=== PATIENT | male | born 1980 | race Caucasian/White ===

== ENCOUNTER 2020-12-30 08:13 | Emergency (ER) | payer OTHER, SELFPAY ==
[2020-12-30 08:27] VITALS: BP 124/77; PULSE 62; RESP 18; TEMP 36.2; O2SAT 99
--- NOTE | 2020-12-30 08:55 | ED.SKABFB ---
HPI - Skin/Abscess/Foreign Bdy General Chief complaint: Skin/Abscess/Foreign Body Stated complaint: Cyst behind ear thats infected Time Seen by Provider: 12/30/20 08:30 Source: patient Mode of arrival: ambulatory Limitations: no limitations History of Present Illness HPI narrative: Patient presents with pain behind his left ear. Pain is moderately severe, and ongoing, dull in nature. Pain has been ongoing for the past 6 days, not improved with ibuprofen. It appears he has a sebaceous cyst behind his left ear, that has recently became spontaneously infected, as these are likely to do. Nothing has decreased the pain or made this feel better. Tetanus up to date: yes Associated symptoms: denies other symptoms Related Data Allergies Allergy/AdvReac Type Severity Reaction Status Date / Time No Known Allergies Allergy Verified 12/30/20 08:27 Review of Systems Constitutional: Constitutional: Reports no additional constitutional complaints Eyes: Eyes: Reports no additional eye complaints ENT: Reports system reviewed and no additional complaints, except as documented Cardiovascular: Cardiovascular: Reports no additional cardiovascular complaints Respiratory: Respiratory: Reports no additional respiratory complaints Gastrointestinal: Gastrointestinal: Reports no additional gastrointestinal complaints Genitourinary: Genitourinary: Reports no additional male genitourinary complaints Musculoskeletal: Musculoskeletal: Reports no additional musculoskeletal complaints Integumentary/Breasts: Skin/Breast: Reports system reviewed and no additional complaints, except as docu Neurologic: Reports system reviewed and no additional complaints, except as documented Psychiatric: Psychiatric: Reports no additional psychiatric complaints Endocrine: Endocrine: Reports no additional endocrine complaints Hematologic/Lymphatic: Hematologic/Lymphatic: Reports no additional hematologic/lymphatic complaints Allergic/Immunologic: Allergic/Immunologic: Reports no additional allergic/immunologic complaints [facility] Past Medical History Medical History (Updated 12/31/20 @ 23:07 by Cesar Kelley MD) No significant past medical history Surgical History Surgical History (Updated 12/31/20 @ 23:07 by Cesar Kelley MD) No significant past surgical history Family History Family History (Updated 12/31/20 @ 23:08 by Cesar Kelley MD) Mother No significant family history Social History Social History (Updated 12/31/20 @ 23:08 by Cesar Kelley MD) Smoking status: Never smoker Exam Const: General: no acute distress Orientation/consciousness: patient oriented x3 HENMT: Ears: TM's normal bilaterally Face and sinus: normal facial exam Mouth: Yes Normal oral and palatal mucosa present Throat: posterior oropharynx normal Other: He has what appears to be an infected sebaceous cyst behind his left ear. This is partially draining now, and is about the size of a quarter. Eyes: Conjunctivae: conjunctivae normal Neck: Neck: no lymphadenopathy Chest: Chest palpation & inspection: normal inspection of the chest Resp: Effort & Inspection: normal respiratory effort Auscultation: clear to auscultation bilaterally Cardio: Rate: regular rate Rhythm: regular rhythm GI: Auscultation: normal bowel sounds (soft nontender) Skin: General skin exam: normal color Neuro: General: patient oriented x3 and moves all extremities Extrem: General: normal to inspection Psych: Appearance: grossly normal Mental Status: mental status grossly normal Thought content: Yes Normal thought content present Course Course Emergency Course: Informed consent was obtained. Lidocaine 1% with epinephrine was used, 4cc to numb the area. Following this the area was opened with an 11 blade, about 3/4 inch. The sebaceous cyst was removed, including the lining. The wound was closed with one #4 nylon suture. Vital Signs Vital signs: Vital Signs Tem
== END 2020-12-30 09:05 | disposition home or self-care (01) ==
PROVIDERS: Emergency Provider Emergency Medicine; PCP Family Medicine
DX: L72.3 Sebaceous cyst (principal)
CPT/HCPCS: 10060; 99283

== ENCOUNTER 2021-01-12 22:05 | Emergency (ER) | payer OTHER, SELFPAY ==
[2021-01-12 22:40] VITALS: BP 125/85; PULSE 74; RESP 18; TEMP 36.8; O2SAT 97
--- NOTE | 2021-01-12 22:58 | ED.GENADULT ---
HPI - General Adult General Chief complaint: Unspecified Stated complaint: needs stitches removed Source: patient History of Present Illness HPI narrative: Patient here today after he had a cyst removed approximately 2 weeks ago and had 1 suture placed, here today for suture removal of the area looks well approximated with no erythema no drainage no fever chills no warmth or tenderness. Onset (ago): week(s) Location: neck Related Data Home Medications Medication Instructions Recorded Confirmed No Home Medications 01/12/21 01/12/21 Allergies Allergy/AdvReac Type Severity Reaction Status Date / Time No Known Allergies Allergy Verified 12/30/20 08:27 Review of Systems Review of Systems: All systems reviewed & are unremarkable except as noted in HPI and below PMFSH Past Medical History Medical History No significant past medical history Surgical History Surgical History No significant past surgical history Family History Family History Mother No significant family history Social History Social History Smoking status: Never smoker Exam Const: General: cooperative, healthy appearing, comfortable and no acute distress HENMT: Head: normal to inspection Face and sinus: normal facial exam Mouth: Yes Normal oral and palatal mucosa present Eyes: General: appearance normal, both eyes and all related structures Neck: Neck: normal visual inspection Cardio: Jugular venous distension: no JVD Palpation: normal PMI GI: Inspection: normal to inspection Back/Spine/Pelvis: Back: no CVA tenderness Skin: General skin exam: normal color and no rashes or lesions noted Other: Suture behind the left ear upper neck area Neuro: General: oriented to person, oriented to place and oriented to time Course Course Emergency Course: suture removed from posterior right ear and upper neck area 1 suture the area was well approximated and no drainage no fever chills. Vital Signs Vital signs: Vital Signs Temperature 36.8 C 01/12/21 22:40 Pulse Rate 74 01/12/21 22:40 Respiratory Rate 18 01/12/21 22:40 Blood Pressure 125/85 01/12/21 22:40 Pulse Oximetry 97 01/12/21 22:40 Temperature 36.8 C 01/12/21 22:40 Pulse Rate 74 01/12/21 22:40 Respiratory Rate 18 01/12/21 22:40 Blood Pressure 125/85 01/12/21 22:40 Pulse Oximetry 97 01/12/21 22:40 Medical Decision Making Vital Signs Vital Signs: Vital Signs Temperature 36.8 C 01/12/21 22:40 Pulse Rate 74 01/12/21 22:40 Respiratory Rate 18 01/12/21 22:40 Blood Pressure 125/85 01/12/21 22:40 Pulse Oximetry 97 01/12/21 22:40 Temperature 36.8 C 01/12/21 22:40 Pulse Rate 74 01/12/21 22:40 Respiratory Rate 18 01/12/21 22:40 Blood Pressure 125/85 01/12/21 22:40 Pulse Oximetry 97 01/12/21 22:40 Critical Care Time Critical Care Time Critical Care Time: No Discharge Plan Discharge Clinical Impression: Visit for suture removal Patient Disposition: Home, Self-Care Condition: Stable Instructions: Antibiotic Form, Stitches Removal (ED) Additional Instructions: follow-up with primary care physician if symptoms persist or worsen. Prescriptions: No Action No Home Medications RF: 0 Follow-up/Referrals: Brown Peter MD [Primary Care Provider] - Time of Disposition: 23:07
[2021-01-12] MEDS: NEOMYCIN/POLYMYXIN/BACITRACIN OINTMENT PACKET 1 PACKET TOPICAL (23:05)
[2021-01-12 23:14] VITALS: BP 130/89; PULSE 75; RESP 18; O2SAT 98
== END 2021-01-12 23:15 | disposition home or self-care (01) ==
PROVIDERS: Emergency Provider Emergency Medicine; PCP Family Medicine
DX: Z48.02 Encounter for removal of sutures (principal)
CPT/HCPCS: 99281; 99282

== ENCOUNTER 2021-06-24 15:17 | Emergency (ER) | payer OTHER, SELFPAY ==
[2021-06-24 15:29] VITALS: BP 137/102; PULSE 114; RESP 18; TEMP 36.9; O2SAT 97
--- NOTE | 2021-06-24 15:33 | ED.SKABFB ---
HPI - Skin/Abscess/Foreign Bdy General Chief complaint: Skin/Abscess/Foreign Body Stated complaint: bump om back on neck possible infection Time Seen by Provider: 06/24/21 15:33 Source: patient Mode of arrival: ambulatory Limitations: no limitations History of Present Illness HPI narrative: 40-year-old man comes in today complaining of painful swelling on his left upper back. Patient states that he has had a painless bump there for approximately 6 months. In the last few days it has become red and warm. He denies fever, nausea, vomiting or prior skin infections. complaint: abscess/boil Onset (ago): day(s) (2) Location: back Quality: sharp Pain Consistency: constant Relieving factors: none Exacerbating factors: palpation Context: other (Extant sebaceous cyst) Treatments prior to arrival: none Related Data Allergies Allergy/AdvReac Type Severity Reaction Status Date / Time No Known Allergies Allergy Verified 06/24/21 15:28 Review of Systems Review of Systems: All systems reviewed & are unremarkable except as noted in HPI and below Constitutional: Constitutional: Denies chills and Denies fever(s) Gastrointestinal: Gastrointestinal: Denies nausea and Denies vomiting Genitourinary: Genitourinary: Denies dysuria and Denies urinary frequency Integumentary/Breasts: Skin/Breast: Denies pruritus, Reports erythema and Denies rash Hematologic/Lymphatic: Hematologic/Lymphatic: Denies easy bleeding and Denies easy bruising Allergic/Immunologic: Allergic/Immunologic: Denies lip swelling and Denies throat swelling PMFSH Past Medical History Medical History No significant past medical history Surgical History Surgical History No significant past surgical history Family History Family History Mother No significant family history Social History Social History (Updated 06/24/21 @ 16:14 by Silvio Orlando MD) Smoking status: Never smoker Substance use: never Living arrangements: with family Exam Const: General: no acute distress and alert Orientation/consciousness: patient oriented x3 Neck: Neck: normal visual inspection and no lymphadenopathy Resp: Effort & Inspection: normal respiratory effort and not labored Auscultation: clear to auscultation bilaterally, no rales, no rhonchi and no wheezes Cardio: Rate: regular rate Rhythm: regular rhythm Heart sounds: no murmurs Skin: General skin exam: normal color, no jaundice and no pallor Rashes: no rashes Other: 1.5 cm tender bump on the left upper back that is tender to palpation. No fluctuance. No drainage. Neuro: General: patient oriented x3, moves all extremities, no focal motor deficits and CN's II-XI intact bilaterally Speech: normal speech Gait exam (Neuro): Normal gait present Extrem: General: normal to inspection and no clubbing, cyanosis or edema Psych: Appearance: grossly normal and well kempt Mental Status: mental status grossly normal Affect: normal affect Attitude: cooperative Thought content: Yes Normal thought content present Course Vital Signs Vital signs: Vital Signs Temperature 36.9 C 06/24/21 15:29 Pulse Rate 114 H 06/24/21 15:29 Respiratory Rate 18 06/24/21 15:29 Blood Pressure 137/102 H 06/24/21 15:29 Pulse Oximetry 97 06/24/21 15:29 Temperature 36.9 C 06/24/21 15:29 Pulse Rate 114 H 06/24/21 15:29 Respiratory Rate 18 06/24/21 15:29 Blood Pressure 137/102 H 06/24/21 15:29 Pulse Oximetry 97 06/24/21 15:29 Procedures Abscess I/D back: Date of Incision: 06/24/21 Time of Incision: 16:00 Side (if applicable): left Local Anesthetic: lidocaine 1% and with epi Amount of anesthesia used (mL): 3 Technique: incised with #11 blade and other (Blunt dissection of the of the cyst was attempt
--- NOTE | 2021-06-24 16:09 | PC.NURSE ---
Assisted Dr. Orlando with I&D.
== END 2021-06-24 16:26 | disposition home or self-care (01) ==
PROVIDERS: Emergency Provider Emergency Medicine; PCP Family Medicine
DX: L02.212 Cutaneous abscess of back [any part, except buttock and flank] (principal)
CPT/HCPCS: 10061; 87070; 87205; 99283

== ENCOUNTER 2021-06-28 08:45 | Emergency (ER) | payer OTHER, SELFPAY ==
--- NOTE | 2021-06-28 08:50 | ED.GENADULT ---
HPI - General Adult General Chief complaint: Wound/Laceration Stated complaint: NEEDS PACKING IN WOUND CHANGED Source: patient Mode of arrival: ambulatory Limitations: no limitations History of Present Illness HPI narrative: Vernon presented to the ER for a wound check. He had an I&D of an infected sebaceous cyst 4 days ago and was treated with Bactrim. Today he needs the packing replaced. No fevers or chills reported. He has had some drainage. Pain is improved. Related Data Allergies Allergy/AdvReac Type Severity Reaction Status Date / Time No Known Allergies Allergy Verified 06/28/21 08:54 Review of Systems Constitutional: Constitutional: Reports no additional constitutional complaints Eyes: Eyes: Reports no additional eye complaints ENT: Reports system reviewed and no additional complaints, except as documented Cardiovascular: Cardiovascular: Reports no additional cardiovascular complaints Respiratory: Respiratory: Reports no additional respiratory complaints Gastrointestinal: Gastrointestinal: Reports no additional gastrointestinal complaints Genitourinary: Genitourinary: Reports no additional male genitourinary complaints Musculoskeletal: Musculoskeletal: Reports no additional musculoskeletal complaints Integumentary/Breasts: Skin/Breast: Reports as per HPI Neurologic: Reports system reviewed and no additional complaints, except as documented Psychiatric: Psychiatric: Reports no additional psychiatric complaints Endocrine: Endocrine: Reports no additional endocrine complaints Hematologic/Lymphatic: Hematologic/Lymphatic: Reports no additional hematologic/lymphatic complaints Allergic/Immunologic: Allergic/Immunologic: Reports no additional allergic/immunologic complaints [facility] Past Medical History Medical History No significant past medical history Surgical History Surgical History No significant past surgical history Family History Family History Mother No significant family history Social History Social History Smoking status: Never smoker Substance use: never Exam Const: General: no acute distress and alert Orientation/consciousness: patient oriented x3 Limitations: altered mental status HENMT: Head: normal to inspection Eyes: Conjunctivae: conjunctivae normal Pupils: Equal, round and reactive pupils present Neck: Neck: normal visual inspection Chest: Chest palpation & inspection: normal inspection of the chest Resp: Effort & Inspection: normal respiratory effort, not labored and not tachypneic Cardio: Rate: regular rate Skin: Other: Had a 0.5cm laceration on his upper back with packing in place. No erythema or new drainage Neuro: General: patient oriented x3 and moves all extremities Extrem: General: normal to inspection Psych: Mental Status: mental status grossly normal Course Course Emergency Course: Packing replaced and he was instructed to finish his antibiotics and remove the packing in a couple days Discharge Plan Discharge Clinical Impression: Abscess Patient Disposition: Home, Self-Care Condition: Stable Instructions: Acute Wounds (ED) Additional Instructions: Please return for any concerns. Take the packing out in 2 days. Prescriptions: No Action tramadol 50 mg tablet 50 mg PO Q6H PRN (Reason: pain) Qty: 6 RF: 0 sulfamethoxazole-trimethoprim 800-160 mg tablet 1 tablet PO Q12H Qty: 20 RF: 0 Follow-up/Referrals: Brown Peter MD [Primary Care Provider] -
[2021-06-28 08:54] VITALS: BP 122/87; PULSE 94; RESP 18; TEMP 36.7; O2SAT 96
== END 2021-06-28 09:03 | disposition home or self-care (01) ==
PROVIDERS: Emergency Provider Family Medicine; PCP Family Medicine
DX: L02.212 Cutaneous abscess of back [any part, except buttock and flank] (principal)
CPT/HCPCS: 99281